=== PATIENT | female | born 1970 | race Caucasian/White ===

== ENCOUNTER 2016-08-10 08:40 | Outpatient (CLI) | payer BC ==
--- NOTE | 2016-08-10 09:52 | DIAGNOSTIC IMAGING REPORT ---
PROCEDURE: US ABDOMEN ULTRASOUND-COMPLETE INDICATION: ABD PAIN;ALCOHOL ABUSE TECHNIQUE: Carmichael scale and color Doppler sonographic images of the abdomen were obtained. COMPARISON: None. FINDINGS: Normal liver measures 16.4 cm. Normal spleen, gallbladder and common bile duct (3.9 mm). Negative Squires's sign. Pancreas not well visualized. Aorta and IVC are patent. Normal hepatopetal flow in the portal vein. Normal kidneys. Right kidney measures 10.9 cm and left kidney 12.1 cm. IMPRESSION: 1. Pancreas not well visualized, otherwise negative abdominal ultrasound
== END 2016-08-10 23:00 ==
LOC: US SRH 08:40
DX: R10.9 Unspecified abdominal pain (principal); F10.10 Alcohol abuse, uncomplicated

== ENCOUNTER 2016-08-18 09:43 | Outpatient (CLI) | payer BC ==
--- NOTE | 2016-08-18 12:25 | DIAGNOSTIC IMAGING REPORT ---
PROCEDURE: XR UPPER GI WITH SBFT INDICATION: Abdominal pain. EtOH use. Diarrhea. TECHNIQUE: Double contrast study. Fluoroscopy time, 4.9 minutes; 3408.36 mGy. 49 fluoroscopic images (including cinefluoroscopy). COMPARISON: None. FINDINGS: Moderate gastroesophageal reflux. Esophagus is otherwise normal. Stomach is normal. There is moderate thickening of the folds of the duodenal bulb and the second segment of the duodenum with delayed emptying of the duodenal bulb. No ulcers are identified. There is relative rapid transit through the small bowel with contrast reaching the terminal ileum and transverse colon at 15 minutes. Small bowel pattern is normal, including the terminal ileum. IMPRESSION: 1. Moderate gastroesophageal reflux. 2. Moderate thickening of the duodenal folds with spasm of the duodenal bulb. Findings are consistent with duodenitis and/or hyperacidity. No evidence of ulcer. 3. Relatively rapid transit through the small bowel (15 minutes), although small bowel pattern is normal. 4. Findings discussed with the patient and called to Dr. Hammonds.
== END 2016-08-18 23:00 ==
LOC: XR SRH 09:43
DX: K21.9 Gastro-esophageal reflux disease without esophagitis (principal); I10 Essential (primary) hypertension